=== PATIENT | female | born 1985 ===

== ENCOUNTER 2018-06-26 20:46 | Emergency (ER) | payer SELFPAY ==
[2018-06-26] MEDS ORDERED: Sodium Chloride 0.9% 1,000 ML IV ONE (21:08)
--- NOTE | 2018-06-26 21:08 | C.PDOC ---
History Of Present Illness 32 year old female , G 1 P1 1 AB, is 3 months presents to the ED c/o vaginal bleeding. Patient states she does not have any type of pre care. Patient reports today approximately 4-5 hours ago she noticed some vaginal bleeding. Patient denies fever, chills, vomit, diarrhea, vaginal discharge. Time Seen by Provider: 06/26/18 21:08 Chief Complaint (Nursing): Abdominal Pain History Per: Patient History/Exam Limitations: no limitations Onset/Duration Of Symptoms: Hrs Current Symptoms Are (Timing): Still Present Severity: Mild Location Of Pain/Discomfort: Diffuse Radiation Of Pain To:: None Quality Of Discomfort: "Pain" Associated Symptoms: denies: Nausea, Vomiting, Diarrhea, Constipation Exacerbating Factors: None Alleviating Factors: None Recent travel outside of the [place]: No Additional History Per: Patient Abnormal Vaginal Bleeding: Yes Last Menstral Period: 04/12/2018 : 1 Para: 1 Past Medical History Reviewed: Historical Data, Nursing Documentation, Vital Signs Vital Signs: Last Vital Signs Temp 98.4 F 06/26/18 22:17 Pulse 73 06/26/18 22:17 Resp 20 06/26/18 22:17 BP 112/71 06/26/18 22:17 Pulse Ox 98 06/26/18 23:28 - Medical History PMH: No Chronic Diseases Surgical History: No Surg Hx Family History: States: Unknown Family Hx - Social History Hx Alcohol Use: No Hx Substance Use: No - Immunization History Hx Tetanus Toxoid Vaccination: No Hx Influenza Vaccination: No Hx Pneumococcal Vaccination: No Review Of Systems Constitutional: Negative for: Fever, Chills Cardiovascular: Negative for: Chest Pain Respiratory: Negative for: Shortness of Breath Gastrointestinal: Positive for: Abdominal Pain. Negative for: Nausea, Vomiting , Diarrhea Genitourinary: Positive for: Vaginal Bleeding Musculoskeletal: Negative for: Back Pain Neurological: Negative for: Weakness, Numbness Physical Exam - Physical Exam Appears: Non-toxic, No Acute Distress Skin: Warm, Dry Head: Normacephalic Eye(s): bilateral: Normal Inspection Oral Mucosa: Moist Neck: Supple Chest: Symmetrical Cardiovascular: Rhythm Regular Respiratory: No Rales, No Rhonchi, No Wheezing Gastrointestinal/Abdominal: Soft, Tenderness (mild suprapubic), No Guarding, No Rebound Extremity: No Tenderness, No Swelling Extremity: Bilateral: Atraumatic, Normal Color And Temperature, Normal ROM Neurological/Psych: Oriented x3, Normal Speech Gait: Steady ED Course And Treatment - Laboratory Results Result Diagrams: 06/26/18 21:33 06/26/18 21:33 O2 Sat by Pulse Oximetry: 98 (ON RA) Pulse Ox Interpretation: Normal Progress Note: Plan: - Labs. - IV fluids. - UA. - pelvic US Reevaluation Time: 00:52 Reassessment Condition: Improved Disposition Counseled Patient/Family Regarding: Studies Performed, Diagnosis, Need For Followup - Disposition Referrals: [facility] [Outside] [facility] [Outside] Disposition: HOME/ ROUTINE Disposition Time: 21:08 Condition: FAIR Additional Instructions: Please return if symptoms recur. Will need a repeat bhcg and ultrasound in 7-10 days Instructions: Threatened Miscarriage (DC) Forms: [employer] ([employer]) Print Language: [place] - Clinical Impression Clinical Impression: Threatened - Scribe Statement The provider has reviewed the documentation as recorded by the Scribe Neo Baez All medical record entries made by the Scribe were at my direction and personally dictated by me. I have reviewed the chart and agree that the record accurately reflects my personal performance of the history, physical exam, medical decision making, and the department course for this patient. I have also personally directed, reviewed, and agree with the discharge instructions and disposition.
[2018-06-26 21:38] LABS: BASO # 0.1 K/uL (0.0-0.2); BASO % 0.6 % (0.0-2.0); EOS # 0.3 K/uL (0.0-0.7); EOS % 2.8 % (0.0-4.0); HEMOGLOBIN 13.2 g/dL (11.0-16.0); LYMPH # 2.8 K/uL (1.0-4.3); MEAN CELL VOLUME 87.3 fL (81.0-99.0); MEAN CORPUSCULAR HEMOGLOBIN 30.1 pg (27.0-31.0); MEAN CORPUSCULAR HGB CONC 34.5 g/dL (33.0-37.0); MEAN PLATELET VOLUME 8.3 fL (7.2-11.7); MONO # 0.6 K/uL (0.0-0.8); MONO % 5.8 % (0.0-10.0); NEUT # 6.2 K/uL (1.8-7.0); NEUT % 62.8 % (50.0-75.0); RBC 4.39 Mil/uL (3.80-5.20); RED CELL DISTRIBUTION WIDTH 13.1 % (11.5-14.5); WHITE BLOOD COUNT 9.8 K/uL (4.8-10.8)
[2018-06-26 21:49] LABS: INR 1.1; PROTHROMBIN TIME 12.3 SECONDS (9.7-12.2)
[2018-06-26 21:53] LABS: ALB/GLOB RATIO 1.4 (1.0-2.1); ALBUMIN 4.6 g/dL (3.5-5.0); BLOOD UREA NITROGEN 12 mg/dL (7-17); CALCIUM 9.9 mg/dl (8.6-10.4); GFR NON-AFRICAN AMERICAN > 60; SQUAMOUS EPITHIAL 2 /hpf (0-5); URINE BACTERIA RARE (<OCC); URINE BILIRUBIN NEGATIVE (NEGATIVE); URINE BLOOD 1+ (NEGATIVE); URINE CLARITY Clear (Clear); URINE COLOR Yellow (YELLOW); URINE GLUCOSE (UA) NORMAL (Normal); URINE LEUKOCYTE ESTERASE NEG Leu/uL (Negative); URINE PROTEIN NEGATIVE (NEGATIVE); URINE UROBILINOGEN NORMAL mg/dL (0.2-1.0)
[2018-06-26 22:04] LABS: ALT/SGPT 28 U/L (9-52); AST/SGOT 25 U/L (14-36)
[2018-06-26 22:18] VITALS: RESP 20; TEMP 98.4
[2018-06-27 01:15] VITALS: BP 110/70; PULSE 74; O2SAT 99
--- NOTE | 2018-06-27 10:51 | US ---
Date of service: 06/26/18 1st trimester/Ob transverse Indication: 3 months , vaginal bleeding Comparison: None available Technique: Real-time transabdominal pelvic ultrasound was performed. In addition a transvaginal pelvic ultrasound was necessary to better depict pelvic anatomy. Findings: The uterus measures approximately 8.4 x 5.1 x 6.4 cm. Anteverted. Cervix length measures approximately 4.0 cm. There is a single intrauterine fetus present. The gestational sac measures 2.3cm and is compatible with a gestational age of 7 weeks 0days. Gestational sac contour appears irregular. 1.8 cm yolk sac. The crown-rump length measures 0.4 cm and is compatible with a gestational age of 6weeks 1days. heart motion is not detected at this time. The right ovary measures 2.3 x 2.0 x 2.0 cm. 1.5 x 1.3 x 1.5 cm probable cyst. The left ovary measures 2.2 x 1.1 x 2.2 cm. Flow was demonstrated to both ovaries. Impression: Single intrauterine with estimated gestational age 7 weeks 0 days by gestational sac calculation and 6 weeks 1 day by crown-rump length calculation. Gestational sac contour appears irregular. Yolk sac measures approximately 1.8 cm maximum dimension, enlarged. heart motion is not detected at this time. Correlate clinically including corn shredder consultation and close interval follow-up as warranted. Preliminary impression was provided by virtual radiologic.
== END 2018-06-27 01:13 | disposition home or self-care (01) ==
LOC: C.ER 20:46
DX: O20.0 Threatened abortion (principal); Z3A.01 Less than 8 weeks gestation of pregnancy
CPT/HCPCS: 76805; 76817; 80053; 81001; 84702; 85025; 85610; 85730; 86850; 86900; 96360; 99284; J7030